=== PATIENT | male | born 1975 | race Caucasian/White ===

== ENCOUNTER → 2022-07-01 | Outpatient (CLI) | payer SELFPAY ==
--- NOTE | 2022-07-01 12:04 | Diagnostic Imaging Report ---
INDICATION: Family history of coronary artery disease CT coronary calcium scoring study performed with noncontrast images of the heart and calculation of cardiac score. Dose reduction protocol was used. Raw data images demonstrate no overt mediastinal or hilar adenopathy. Visualized portions of the aorta were unremarkable. The entirety of the lungs are not included on the study but visualized portions of the lung lafleur show no infiltrates or nodules. There was no significant coronary artery calcification. Coronary calcium score was 0 IMPRESSION: No significant coronary recalcification, coronary calcium score was 0. Dictated by: Dictated on workstation # [id number]
== END ==
LOC: RAD 10:15
PROVIDERS: ATTEND Family Medicine
DX: Z82.49 Family history of ischemic heart disease and other diseases of the circulatory system (principal)
CPT/HCPCS: 75571